=== PATIENT | female | born 1955 | race Caucasian/White ===

== ENCOUNTER 2017-09-27 07:11 | Day surgery (SDC) | payer BC ==
[2017-09-27] MEDS ORDERED: GLYCOPYRROLATE 0.2 MG/1 ML VIAL ONE (07:46)
[2017-09-27] MEDS ORDERED: SUCCINYLCHOLINE CHLORIDE 200 MG/10 ML VIAL ONE (07:46)
[2017-09-27] MEDS ORDERED: ePHEDrine SULFATE 50 MG/1 ML AMPULE ONE (07:46)
[2017-09-27] MEDS ORDERED: PROPOFOL 20 ML ONE ×4 (07:46)
[2017-09-27] MEDS ORDERED: LIDOCAINE HCL/PF 2% SDV 5ML VIAL ONE (07:46)
[2017-09-27] MEDS ORDERED: TETRACAINE/BENZOCAINE/BUTAMBEN 20 GM SPR TP ONE (07:49)
[2017-09-27 07:55] VITALS: BMI 36.1
[2017-09-27 09:08] VITALS: TEMP 97.8
[2017-09-27 11:02] VITALS: BP 137/80; PULSE 76
--- NOTE | 2017-09-30 16:52 | PATH ---
Surgical Pathology Report Patient Name: HUYEN BRYAN [facility]. Rec. #: [id number] /Age/Gender: 1955 (Age: 62) / F Account: [id number] Location: ASU-ENDOSCOPY Taken: 09/27/2017 Received: 09/27/2017 Reported: 09/30/2017 Physicians: Jorge Anderson M.D. Specimen(s) Received A: BX 2ND PORTION DUODENUM AND BULB B: BX ANTRUM C: POLYPS RIGHT COLON D: POLYP CECUM E: RECTAL POLYP Clinical History Abdominal pain, colon cancer screening Gastritis, colon polyps, diverticulosis Final Diagnosis A. DUODENUM, SECOND PORTION AND BULB, BIOPSY: DUODENAL MUCOSA WITHOUT SIGNIFICANT PATHOLOGIC FINDINGS. B. STOMACH, ANTRUM, BIOPSY: GASTRIC ANTRAL MUCOSA WITH MILD CHRONIC GASTRITIS. IMMUNOHISTOCHEMICAL STAIN FOR H. PYLORI IS NEGATIVE. C. COLON, RIGHT, POLYP, BIOPSY: TUBULAR ADENOMA. D. CECUM, POLYP, BIOPSY: TUBULAR ADENOMA. E. RECTUM, POLYP, BIOPSY: HYPERPLASTIC POLYP. Electronically Signed Huyen Larson M.D. Addendum Reported: 09/30/2017 Addendum Diagnosis For part B, Focal intestinal metaplasia is present. No dysplasia identified. Huyen Larson M.D. Gross Description A. Received in formalin, labeled "biopsy second portion of duodenum and bulb" are 4 morales, irregular portions of soft tissue ranging from 0.2-0.3 cm. in greatest dimension. The specimens are submitted in toto in one cassette. B. Received in formalin, labeled "biopsy antrum" are 5 morales, irregular portions of soft tissue ranging from 0.2-0.5 cm. in greatest dimension. The specimens are submitted in toto in one cassette. C. Received in formalin, labeled "right colon polyp" are 5 morales, irregular to polypoid portions of soft tissue ranging from 0.2-0.5 cm. in greatest dimension. The specimens are submitted in toto in one cassette. D. Received in formalin, labeled "cecum" is a morales, irregular portion of soft tissue measuring 0.2 cm. in greatest dimension. The specimen is submitted in toto in one cassette. E. Received in formalin, labeled "rectal polyp" is a morales, irregular portion of soft tissue measuring 0.2 cm. in greatest dimension. The specimen is submitted in toto in one cassette. 09/27/201709/27/2017
== END 2017-09-27 11:03 | disposition home or self-care (01) ==
LOC: JASU-ENDO 07:11
PROVIDERS: ATTEND Internal Medicine Gastroenterology
PROC: 0DBH8ZX Excision of Cecum, Via Natural or Artificial Opening Endoscopic, Diagnostic (ICD-10-PCS; 2017-09-27)
PROC: 0DBP8ZX Excision of Rectum, Via Natural or Artificial Opening Endoscopic, Diagnostic (ICD-10-PCS; 2017-09-27)
PROC: 0DB98ZX Excision of Duodenum, Via Natural or Artificial Opening Endoscopic, Diagnostic (ICD-10-PCS; 2017-09-27)
PROC: 0DB68ZX Excision of Stomach, Via Natural or Artificial Opening Endoscopic, Diagnostic (ICD-10-PCS; 2017-09-27)
PROC: 0DBK8ZX Excision of Ascending Colon, Via Natural or Artificial Opening Endoscopic, Diagnostic (ICD-10-PCS; principal; 2017-09-27 08:00)
DX: Z12.11 Encounter for screening for malignant neoplasm of colon (principal); K62.1 Rectal polyp; D12.2 Benign neoplasm of ascending colon; D12.0 Benign neoplasm of cecum; K57.30 Diverticulosis of large intestine without perforation or abscess without bleeding; K29.70 Gastritis, unspecified, without bleeding; K31.3 Pylorospasm, not elsewhere classified; R10.13 Epigastric pain
CPT/HCPCS: 88305-TC; 88342-TC

== ENCOUNTER 2018-05-25 11:53 | Emergency (ER) | payer BC ==
[2018-05-25 12:13] VITALS: BP 131/81; PULSE 92; TEMP 98.5; BMI 34.7
--- NOTE | 2018-05-25 12:44 | PDOC ---
History of Present Illness - General Chief Complaint: Respiratory Stated Complaint: COUGH Time Seen by Provider: 05/25/18 12:29 History Source: Patient Exam Limitations: Clinical Condition - History of Present Illness Initial Comments: 05/25/18 12:39 Patient with h/o COPD and multiple comorbidities present with complains of over a week h/o persistent yellow productive cough which is not improving her inhaler. Denies fever, chills, malaise, body aches, N/V. report occasional SOB Timing/Duration: 1 week Severity: moderate Modifying Factors: improves with: other (none) Associated Symptoms: reports: cough. denies: chest pain, diaphoresis, fever/ chills, headaches, loss of appetite, malaise, nausea/vomiting, rash, seizure, shortness of breath, syncope, weakness, other Aspirin Received prior to arrival: Yes: no aspirin today Asa Contraindications(Core Measure): No: Allergy Past History - Past Medical History Allergies/Adverse Reactions: Allergies Allergy/AdvReac Type Severity Reaction Status Date / Time metoprolol Allergy Severe Verified 05/25/18 12:12 morphine Allergy Severe Verified 05/25/18 12:12 naproxen sodium [From Aleve] Allergy Intermediate Verified 05/25/18 12:12 ampicillin [Ampicillin] Allergy Mild Rash Verified 05/25/18 12:12 cefaclor [From Ceclor] Allergy Mild Rash Verified 05/25/18 12:12 cephapirin sodium Allergy Mild Rash Verified 05/25/18 12:12 [From Cefadyl] labetalol [Labetalol] Allergy Mild Rash Verified 05/25/18 12:12 levofloxacin [From Levaquin] Allergy Mild Itching Verified 05/25/18 12:12 epinephrine AdvReac Elevated Verified 05/25/18 12:12 Blood Pressure Home Medications: Ambulatory Orders Cyclobenzaprine HCl [Flexeril -] 10 mg PO BID 01/19/13 Diazepam [Valium -] 10 mg PO PRN PRN 01/19/13 Acetaminophen [Tylenol .Extra-Strength -] 1,000 mg PO Q4H PRN 06/25/13 Telmisartan/Hydrochlorothiazid [Micardis Hct 80-25 mg Tablet] 1 each PO DAILY Docosahexanoic Acid/Epa [Fish Oil Softgel] 1 each PO DAILY 07/06/13 Albuterol Sulfate [Proair Respiclick] 1 puff PO TID PRN 09/26/17 Glipizide [Glucotrol] 1 tab PO DAILY 09/26/17 Ibuprofen [Motrin -] 800 mg PO DAILY 09/26/17 Oxycodone HCl/Acetaminophen [Oxycodone-Acetaminophen 10-325] 1 tab PO PRN PRN Vitamin E 1,000 unit PO DAILY 09/26/17 Fluticasone/Salmeterol [Advair 250-50 Diskus] 1 each IH BID 09/27/17 Omeprazole 20 mg PO DAILY #90 tablet. 09/27/17 Benzonatate [Tessalon Pearls -] 100 mg PO TID #21 capsule 05/25/18 Clarithromycin [Biaxin -] 500 mg PO BID #14 tablet 05/25/18 Prednisone [Deltasone] 20 mg PO BID #6 tablet 05/25/18 Anemia: No Asthma: No Cancer: Yes (STAGE 4 UTERINE CANCER) Cardiac Disorders: Yes (ASHD) CVA: No COPD: Yes CHF: No Dementia: No Diabetes: Yes (NIDDM) GI Disorders: Yes (GERD,GASTRITIS,DIVERTICULOSIS) Disorders: No HTN: Yes Hypercholesterolemia: No Liver Disease: No Psychiatric Problems: (anxiety/panic attacks) Seizures: No Thyroid Disease: No - Surgical History Abdominal Surgery: No Appendectomy: No Cardiac Surgery: No Cholecystectomy: Yes Lung Surgery: No Neurologic Surgery: No Orthopedic Surgery: Yes (KNEE REPLACEMENTS; BILATERAL) - Suicide/Smoking/Psychosocial Hx Smoking Status: No Smoking History: Never smoked Have you smoked in the past 12 months: No Number of Cigarettes Smoked Daily: 0 Information on smoking cessation initiated: No Hx Alcohol Use: No Drug/Substance Use Hx: No Substance Use Type: None Hx Substance Use Treatment: No Review of Systems - Review of Systems Able to Perform ROS?: Yes Is the patient limited Serbian proficient: No Constitutional: Yes: See HPI, Chills. No: Diaphoresis, Fever, Loss of Appetite , Malaise, Night Sweats, Weakness, Weight Stable, Unintentional Wgt. Loss, Unexplained wgt Loss, Other HEENTM: No: Eye Pain, Blurred Vision, Tearing, Recent change in vision, Double Vision, Cataracts, Ear Pain, Ocular Prothesis, Ear Discharge, Nose Pain, Nose Congestion, Tinnitus, Nose Bleeding, Hearing Loss, Throat Pain, Throat Swelling , Mouth Pain, Dental Problems, Difficulty Swallowing, Mouth Swelling, Other Respiratory: Yes: See HPI, Cough, Shortness of Breath (occasional ). No: Orthopnea, SOB with Exertion, SOB at Rest, Stridor, Wheezing, Productive cough, Hemoptysis, Other Cardiac (ROS): No: Chest Pain, Edema, Irregular Heart Rate, Lightheadedness, Palpitations, Syncope, Chest Tightness, Other ABD/GI: No: Abdominal Distended, Abd. Pain w/ defecation, Blood Streaked Bowels , Constipated, Diarrhea, Difficulty Swallowing, Nausea, Poor Appetite, Poor Fluid Intake, Rectal Bleeding, Vomiting, Indigestion, Abdominal cramping, Tarry Stools, Other Musculoskeletal: No: Back Pain, Gout, Joint Pain, Joint Swelling, Muscle Pain, Muscle Weakness, Neck Pain, Joint Stiffness, Other Integumentary: No: Bruising, Change in Color, Change in Hair/Nails, Dryness, Erythema, Flushing, Lesions, Lumps, Pallor, Pruritus, Rash, Sweating, Other Neurological: No: Headache, Numbness, Paresthesia, Pre-Existing Deficit, Seizure , Tingling, Tremors, Weakness, Unsteady Gait, Ataxia, Dizziness, Other Psychiatric: No: Anxiety, Depression, Frequent Crying, Stressors, Sleep Pattern Change, Emotional Problems, Mood Swings, Change in Appetite, Other Endocrine: No: Excessive Sweating, Flushing, Intolerance to Cold, Intolerance to Heat, Increased Hunger, Increased Thirst, Increased Urine, Unexplained Weight Gain, Unexplained Weight Loss, Change in Weight, Other All Other Systems: Reviewed and Negative *Physical Exam - Vital Signs Last Vital Signs Temp Pulse Resp BP Pulse Ox 98.5 F 92 H 18 131/81 100 05/25/18 12:05/25/18 12:05/25/18 12:05/25/18 12:05/25/18 12:09 - Physical Exam General Appearance: Yes: Nourished, Appropriately Dressed. No: Apparent Distress HEENT: positive: SUPRIYA, Normal ENT Inspection, TMs Normal, Pharynx Normal Neck: positive: Trachea midline, Supple Respiratory/Chest: positive: Wheezing (mild diffused). negative: Chest Tender, Respiratory Distress, Accessory Muscle Use, Crackles, Rales, Rhonchi, Stridor Cardiovascular: positive: Regular Rhythm, Regular Rate, S1, S2 Gastrointestinal/Abdominal: positive: Normal Bowel Sounds Musculoskeletal: positive: Normal Inspection Extremity: positive: Normal Inspection Integumentary: positive: Normal Color Neurologic: positive: Fully Oriented, Normal Mood/Affect, Normal Response ED Treatment Course - RADIOLOGY Radiology Studies Ordered: Category Date Time Status CHEST PA & LAT [RAD] Stat Radiology 05/25/18 12:34 Ordered Medical Decision Making - Medical Decision Making 05/25/18 12:43 Patient with h/o COPD presenting with over a week h/o productive cough. likely acute Bronchitis vs pneumonia. chest x-rays ordered. treat based on imaging results 05/25/18 12:54 no acute pathology on chest x-rays. stable for home discharge with oupt treatment with PCP follow-up *DC/Admit/Observation/Transfer Diagnosis at time of Disposition: Bronchitis, Cough - Discharge Dispostion Disposition: HOME Condition at time of disposition: Stable Decision to Admit order: No - Prescriptions Prescriptions: Benzonatate [Tessalon Pearls -] 100 mg PO TID #21 capsule Clarithromycin [Biaxin -] 500 mg PO BID #14 tablet Prednisone [Deltasone] 20 mg PO BID #6 tablet - Referrals Referrals: Reagan Coulter MD [Primary Care Provider] - - Patient Instructions Printed Discharge Instructions: DI for Acute Bronchitis - Post Discharge Activity
== END 2018-05-25 13:01 | disposition home or self-care (01) ==
LOC: JER 11:53 → JERFT 11:53
DX: J40 Bronchitis, not specified as acute or chronic (principal); I25.10 Atherosclerotic heart disease of native coronary artery without angina pectoris; I10 Essential (primary) hypertension; F41.9 Anxiety disorder, unspecified; F41.0 Panic disorder [episodic paroxysmal anxiety]; Z88.8 Allergy status to other drugs, medicaments and biological substances; Z96.651 Presence of right artificial knee joint; Z96.652 Presence of left artificial knee joint
CPT/HCPCS: 71046-TC-FY; 99281-25

== ENCOUNTER 2019-04-10 13:06 | Emergency (ER) | payer BC | END 2019-04-10 16:17 | disposition home or self-care (01) | LOC: JER 13:06 ==

== ENCOUNTER 2021-03-13 13:28 | Emergency (ER) | payer BC ==
[2021-03-13 13:40] VITALS: BMI 29.9
[2021-03-13] MEDS ORDERED: METOCLOPRAMIDE HCL INJECTION 10 MG/2 ML VIAL IVPUSH ONE (14:37)
[2021-03-13] MEDS ORDERED: ACETAMINOPHEN 1000 MG/100 ML VIAL (NON FORMULARY) IVPB ONE (14:37)
[2021-03-13] MEDS ORDERED: SODIUM CHLORIDE 1,000 ML IV STA (14:37)
[2021-03-13] MEDS ORDERED: METOCLOPRAMIDE HCL INJECTION 10 MG/2 ML VIAL ONE (14:55)
[2021-03-13] MEDS ORDERED: ACETAMINOPHEN INJECTION 100 ML IVPB ONE (14:55)
[2021-03-13 15:23] LABS: BASO % 0.4 % (0-2.0); EOS % 0.4 % (0-4.5); HEMOGLOBIN 13.9 GM/dL (10.7-15.3); LYMPH % 16.6 % (8-40); MCH 29.2 pg (25.7-33.7); MCHC 33.2 g/dl (32.0-36.0); MEAN CELL VOLUME 87.8 fl (80-96); MONO % 6.3 % (3.8-10.2); NEUT % 76.3 % (42.8-82.8); PLATELET COUNT 152 K/MM3 (134-434); RBC 4.78 M/mm3 (3.60-5.2); RDW 13.7 % (11.6-15.6); WHITE BLOOD COUNT 5.2 K/mm3 (4.0-10.0)
[2021-03-13] MEDS ORDERED: ACETAMINOPHEN 500 MG TABLET (FP) PO ONE (15:37)
[2021-03-13 15:51] LABS: CHLORIDE 108 mmol/L (98-107); SODIUM 138 mmol/L (136-145)
[2021-03-13 15:53] LABS: CALCIUM 8.8 mg/dL (8.5-10.1)
[2021-03-13 15:54] LABS: ALBUMIN 3.7 g/dl (3.4-5.0); BLOOD UREA NITROGEN 30.6 mg/dL (7-18); CO2 25 mmol/L (21-32); GLUCOSE,RANDOM 150 mg/dL (74-106)
[2021-03-13 15:56] LABS: SGPT/ALT 17 U/L (13-61)
[2021-03-13 15:57] LABS: CREATININE 1.6 mg/dL (0.55-1.3); SGOT/AST 49 U/L (15-37)
[2021-03-13 15:58] LABS: BILIRUBIN,TOTAL 0.8 mg/dL (0.2-1); TOT PROT 7.6 g/dl (6.4-8.2)
[2021-03-13 15:59] LABS: ALK PHOS 60 U/L (45-117)
[2021-03-13 16:02] LABS: N-TERMINAL BNP 767.6 pg/ml (5-125)
[2021-03-13 16:04] LABS: ANION GAP 5 MMOL/L (8-16)
[2021-03-13] MEDS ORDERED: ACETAMINOPHEN 500 MG TABLET (FP) ONE (17:29)
[2021-03-13 17:49] LABS: ALBUMIN 4.1 g/dl (3.4-5.0); CALCIUM 9.2 mg/dL (8.5-10.1)
[2021-03-13 17:50] LABS: BLOOD UREA NITROGEN 29.6 mg/dL (7-18)
[2021-03-13 17:53] LABS: CREATININE 1.6 mg/dL (0.55-1.3)
[2021-03-13 17:54] LABS: BILIRUBIN,TOTAL 0.7 mg/dL (0.2-1); TOT PROT 7.8 g/dl (6.4-8.2)
[2021-03-13 18:06] VITALS: BP 181/99; PULSE 78; TEMP 98
== END 2021-03-13 18:13 | disposition home or self-care (01) ==
LOC: JER 13:28
DX: R51.9 Headache, unspecified (principal)
CPT/HCPCS: 36415; 70450-TC; 71045-TC-FY; 80053; 82550; 83880; 84484; 85025; 93005; 93010; 99285-25